=== PATIENT | male | born 1975 | race Caucasian/White ===

== ENCOUNTER 2016-10-18 13:46 | Emergency (ER) | payer SELFPAY ==
[~2016-10-18] VITALS: Ht 177.8 cm; Wt 81.6 kg
[2016-10-18] MEDS ORDERED: ONDANSETRON PF 4 MG/2 ML VIAL. IV ONE (15:00)
[2016-10-18] MEDS ORDERED: IV NORMAL SALINE 1000ML BAG 1,000 ML IV ONE (15:00)
[2016-10-18] MEDS ORDERED: FAMOTIDINE 20 MG/2 ML VIAL IVP ONE (15:00)
[2016-10-18] MEDS ORDERED: fentaNYL PF VIAL 100 MCG/2 ML VIAL IV ONE ×2 (15:00→19:00)
[2016-10-18 15:15] LABS: BASO % 0 % (0-3); EOS % 5 % (0-3); HEMATOCRIT 51.8 % (39.0-53.0); HEMOGLOBIN 17.4 g/dL (13.0-17.5); LYMPH # 2.1 x10^3/uL (1.0-4.8); LYMPH % 21 % (24-48); MEAN CORPUSCULAR HEMOGLOBIN 30 pg (25-35); MEAN CORPUSCULAR HGB CONC 34 g/dL (31-37); MEAN CORPUSCULAR VOLUME 88 fL (79-100); MONO % 10 % (0-9); NEUT % 64 % (31-73); PLATELET COUNT 282 x10^3/uL (140-400); RED BLOOD COUNT 5.86 x10^6/uL (4.30-5.70); RED CELL DISTRIBUTION WIDTH 13.7 % (11.5-14.5); WHITE BLOOD COUNT 10.1 x10^3/uL (4.0-11.0)
--- NOTE | 2016-10-18 15:16 | ED.ADGEN ---
Past Medical History Past Medical History: GERD, Other Additional Past Medical Histor: gastritis Past Surgical History: No Surgical History, Other Additional Past Surgical Histo: "i don't know" Alcohol Use: None Drug Use: None Adult General Chief Complaint Chief Complaint: NAUSEA/VOMITING/DIARRHA HPI HPI Patient is a 41 year old female presents with diffuse periumbilical pain, with intermittent episodes of nausea vomiting and diarrhea for the past 3 days. Patient states he is able to eat and drink fluid and keep it down for about 30 minutes prior to developing severe abdominal pressure, and nausea followed by vomiting. No fever chills or sweats. No blood in vomit or stools. Denies recent travel, antibiotic use, camping or known GI illness exposure. Remote history of bilateral inguinal hernia surgeries. Review of Systems Review of Systems ROS as per hPI. Current Medications Current Medications Current Medications Medications (Trade) Dose Ordered Sig/Gala Start Time Stop Time Status Last Admin Dose Admin Famotidine (Pepcid) 20 mg 1X ONCE 10/18/16 15:00 10/18/16 15:03 DC 10/18/16 15:15 20 MG Fentanyl Citrate (Fentanyl 2ml Vial) 50 mcg 1X ONCE 10/18/16 19:00 10/18/16 19:01 DC 10/18/16 18:59 50 MCG Info (Do NOT chart on this entry -- for MONITORING) 1 each PRN DAILY PRN 10/18/16 17:15 10/18/16 19:43 DC Iohexol (Omnipaque 300 Mg/ml) 75 ml 1X ONCE 10/18/16 17:45 10/18/16 17:46 DC 10/18/16 17:17 75 ML Ondansetron HCl (Zofran) 4 mg 1X ONCE 10/18/16 15:00 10/18/16 15:03 DC 10/18/16 15:15 4 MG Sodium Chloride 1,000 ml @ 1,000 mls/hr 1X ONCE 10/18/16 15:00 10/18/16 15:59 DC 10/18/16 15:00 1,000 MLS/HR Allergies Allergies Allergies Coded Allergies Type Severity Reaction Last Updated Verified No Known Drug Allergies 07/13/13 No Physical Exam Physical Exam Constitutional: Well developed, well nourished, no acute distress. HENT: Normocephalic, atraumatic, bilateral external ears normal, oropharynx moist, no oral exudates, nose normal. Eyes: PERRLA, EOMI, conjunctiva normal. Neck: Normal range of motion. Cardiovascular:Heart rate regular rhythm, no murmur. Lungs & Thorax: Bilateral breath sounds clear to auscultation . Abdomen: Bowel sounds normal, soft, diffuse midabdominal pain, tenderness, no distention, increased bowel sounds. Skin: Warm, dry, no erythema, no rash. Back: No tenderness. Extremities: No tenderness. Neurologic: Alert and oriented X 3, normal motor function, normal sensory function. Psychologic: Affect normal, judgement normal, mood normal. Current Patient Data Vital Signs Vital Signs Date Time Temp Pulse Resp B/P (MAP) Pulse Ox O2 Delivery O2 Flow Rate FiO2 10/18/16 18:59 20 96 Room Air 10/18/16 18:54 80 114/72 (86) 10/18/16 14:52 97.8 97.8 Lab Values Laboratory Tests Test 10/18/16 14:50 10/18/16 16:05 White Blood Count 10.1 x10^3/uL (4.0-11.0) Red Blood Count 5.86 x10^6/uL (4.30-5.70) H Hemoglobin 17.4 g/dL (13.0-17.5) Hematocrit 51.8 % (39.0-53.0) Mean Corpuscular Volume 88 fL (79-100) Mean Corpuscular Hemoglobin 30 pg (25-35) Mean Corpuscular Hemoglobin Concent 34 g/dL (31-37) Red Cell Distribution Width 13.7 % (11.5-14.5) Platelet Count 282 x10^3/uL (140-400) Neutrophils (%) (Auto) 64 % (31-73) Lymphocytes (%) (Auto) 21 % (24-48) L Monocytes (%) (Auto) 10 % (0-9) H Eosinophils (%) (Auto) 5 % (0-3) H Basophils (%) (Auto) 0 % (0-3) Neutrophils # (Auto) 6.5 x10^3uL (1.8-7.7) Lymphocytes # (Auto) 2.1 x10^3/uL (1.0-4.8) Monocytes # (Auto) 1.0 x10^3/uL (0.0-1.1) Eosinophils # (Auto) 0.5 x10^3/uL (0.0-0.7) Basophils # (Auto) 0.0 x10^3/uL (0.0-0.2) Sodium Level 139 mmol/L (136-145) Potassium Level 3.5 mmol/L (3.5-5.1) Chloride Level 96 mmol/L (98-107) L Carbon Dioxide Level 33 mmol/L (21-32) H Anion Gap 10 (6-14) Blood Urea Nitrogen 15 mg/dL (8-26) Creatinine 1.2 mg/dL (0.7-1.3) Estimated GFR (Cockcroft-Gault) 66.4 BUN/Creatinine Ratio 13 (6-20) Glucose Level 110 mg/dL (70-99) H Calcium Level 9.6 mg/dL (8.5-10.1) Total Bilirubin 0.8 mg/dL (0.2-1.0) Aspartate Amino Transferase (AST) 21 U/L (15-37) Alanine Aminotransferase (ALT) 20 U/L (16-63) Alkaline Phosphatase 101 U/L (46-116) Total Protein 9.1 g/dL (6.4-8.2) H Albumin 4.4 g/dL (3.4-5.0) Albumin/Globulin Ratio 0.9 (1.0-1.7) L Lipase 113 U/L (73-393) Urine Collection Type Unknown Urine Color Andie Urine Clarity Cloudy Urine pH 8.5 Urine Specific Anderson >=1.030 Urine Protein 100 mg/dL (NEG-TRACE) Urine Glucose (UA) Negative mg/dL (NEG) Urine Ketones (Stick) Trace mg/dL (NEG) Urine Blood Negative (NEG) Urine Nitrite Negative (NEG) Urine Bilirubin Negative (NEG) Urine Urobilinogen Dipstick 1.0 mg/dL (0.2 mg/dL) Urine Leukocyte Esterase Small (NEG) Urine RBC 3-5 /HPF (0-2) Urine WBC 5-10 /HPF (0-4) Urine Amorphous Sediment Present /HPF Urine Bacteria 0 /HPF (0-FEW) Urine Mucus Marked /LPF Laboratory Tests 10/18/16 14:50 Laboratory Tests 10/18/16 14:50 EKG EKG [] Radiology/Procedures Radiology/Procedures [CT abdomen and pelvis: Acute gastric distention secondary to fluids, no other acute intra-abdominal findings per radiology report.] Course & Med Decision Making Course & Med Decision Making Pertinent Labs and Imaging studies reviewed. (See chart for details) [Patient required repeat antiemetics and narcotic pain medication for normal pain. No vomiting in the ED. CT abdomen and pelvis/flank unremarkable exception of distended stomach. No evidence of small bowel obstruction. Patient has previous history of gastritis. Suspect possible gastritis versus peptic ulcer disease. Will treat supportively with PCP follow-up. Return precautions reviewed. Dragon Disclaimer Dragon Disclaimer This electronic medical record was generated, in whole or in part, using a voice recognition dictation system. MAMIE KEANE DO Oct 18, 2016 15:16
[2016-10-18 15:32] LABS: CALCIUM 9.6 mg/dL (8.5-10.1); CREATININE 1.2 mg/dL (0.7-1.3); GFR 66.4; POTASSIUM 3.5 mmol/L (3.5-5.1)
[2016-10-18 15:38] LABS: ALBUMIN 4.4 g/dL (3.4-5.0); ALBUMIN/GLOBULIN RATIO 0.9 (1.0-1.7); TOTAL BILIRUBIN 0.8 mg/dL (0.2-1.0); TOTAL PROTEIN 9.1 g/dL (6.4-8.2)
[2016-10-18 16:19] LABS: BILIRUBIN,URINE NEGATIVE (NEG); GLUCOSE,URINE NEGATIVE (NEG); NITRITE,URINE NEGATIVE (NEG); PH,URINE 8.5; PROTEIN,URINE 100 mg/dL (NEG-TRACE)
[2016-10-18 16:28] LABS: BACTERIA,URINE 0 /HPF (0-FEW)
[2016-10-18] MEDS ORDERED: CONTRAST GIVEN MC PRN (17:15)
--- NOTE | 2016-10-18 17:41 | RAD ---
CT abdomen and pelvis with contrast Indication: abd pain
omni 300 75ml
no priors. Abdominal pain. Technique: Intravenous contrast. No oral contrast per request. Comparison:None available Exposure: One or more of the following individualized dose reduction techniques were utilized for this examination: 1. Automated exposure control 2. Adjustment of the mA and/or kV according to patient size 3. Use of iterative reconstruction technique. FINDINGS: Lower thorax: Lung bases are clear. Pneumoperitoneum:No gross pneumoperitoneum. Liver: Tiny low-density lesion at the upper right lobe, subcentimeter and too small to characterize, but would most typically be benign. Spleen: Unremarkable Pancreas: Unremarkable Adrenals:No evidence of mass. Kidneys:Unremarkable Gallbladder: No calcified stone Aorta: Abdominal aorta is nonaneurysmal Lymph nodes: No significant enlargement GI tract: The stomach is distended, mostly with fluid. No bowel obstruction. Limited: Exam due to the lack of oral contrast and the lack of much surrounding fat, but no obvious wall thickening. Appendix: Probably within normal limits. Ascites: No gross ascites. Urinary bladder: Not opacified or distended. No evidence of pelvic mass, Bones: Bilateral spondylolysis of L5. Mild spondylolisthesis of L5 anteriorly on S1. Degenerative disc narrowing at L5-S1. IMPRESSION: 1. The stomach is distended with fluid. 2. No other acute finding in the abdomen or pelvis. 3. Bilateral L5 spondylolysis with with spondylolisthesis. Electronically signed by: Caden Salazar MD (10/18/2016 5:37 PM) [id number]
[2016-10-18] MEDS ORDERED: IOHEXOL 300 MG/ML 75 ML VIAL IV ONE (17:45)
[2016-10-18 19:24] VITALS: BP 117/69
== END 2016-10-18 19:43 | disposition home or self-care (01) ==
LOC: ER 13:46
DX: R10.33 Periumbilical pain (principal); R11.2 Nausea with vomiting, unspecified; R19.7 Diarrhea, unspecified; K21.9 Gastro-esophageal reflux disease without esophagitis
CPT/HCPCS: 36415; 74177; 80053; 81001; 83690; 85027; 87086; 96361; 96374; 96375; 96376; 99285; J2405; J3010; J7030; Q9967; S0028